=== PATIENT | male | born 1950 | race Caucasian/White ===

== ENCOUNTER 2017-02-03 09:08 | Inpatient (IN) | payer MEDICARE ==
[~2017-02-03] VITALS: Ht 188 cm; Wt 107.1 kg
[2017-02-03] VITALS (9 sets, daily range): BP systolic 135–149; BP diastolic 56–94; PULSE 71–112; RESP 14–20; TEMP 96.7–98.7; O2SAT 94–98
[~2017-02-03 09:08] MED LIST: ASPI1TAB69 PO; LORA-373 PO; QUET5TAB PO
[2017-02-03] MEDS ORDERED: DULO20 PO (09:25)
[2017-02-03] MEDS ORDERED: ASPI81CH37 CHEW (09:25)
[2017-02-03] MEDS ORDERED: VENTAER INH (09:25)
[2017-02-03] MEDS ORDERED: CEFT250S PO (09:25)
--- NOTE | 2017-02-03 09:55 | PD ---
HPI Chief Complaint: Edema Time Seen by Provider: 09:38 Travel History International Travel<30 days: No Contact w/Intl Traveler<30days: No Traveled to known affect area: No History of Present Illness HPI This patient complains of pain and swelling in his left leg. It is primarily in the left calf region. No injury. It's worse when he stands. No history of DVT. He's had low-grade temperatures between 99 and 100 for the last week. He has had cough. He completed some antibiotics for bronchitis. He denies feeling short of breath right now. No chest pain. He does have cough, nonproductive. PFSH Past Medical History Asthma: Yes High Cholesterol: Yes Diminished Hearing: No Hypertension: Yes Insomnia: Yes Respiratory: Yes (asthma) Influenza Vaccination: Yes PNEUMOCCOCAL Vaccine (Year): 2010 ?: Not Past Surgical History Tonsillectomy: Yes Social History Alcohol Use: Yes (OCC) Tobacco Use: No Substance Use: No Allergies-Medications (Allergen,Severity, Reaction): Coded Allergies: Penicillin (Verified Allergy, Unknown, UNKNOWN, 02/03/17) Reported Meds & Prescriptions Reported Meds & Active Scripts Active Reported Aspirin Low Dose (Aspirin) 81 Mg Chew 81 Mg CHEW DAILY Cymbalta DR (Duloxetine HCl) 20 Mg Capdr 20 Mg PO DAILY Ventolin Hfa 18 GM Inh (Albuterol Sulfate) 90 Mcg/Act Aer 2 Puff INH Q4-6H PRN Ceftin Liq (Cefuroxime Axetil) 250 Mg/5 Ml Susp 500 Mg PO BID Quetiapine (Quetiapine Fumarate) 50 Mg Tab 25 Mg PO HS Review of Systems General / Constitutional: Positive: Fever Eyes: No: Visual changes HENT: No: Headaches Cardiovascular: No: Chest Pain or Discomfort Respiratory: Positive: Cough, Shortness of Breath Gastrointestinal: No: Abdominal Pain Genitourinary: No: Dysuria Musculoskeletal: Positive: Myalgias, Pain Skin: No Rash Neurologic: No: Weakness Psychiatric: No: Depression Endocrine: No: Polydipsia Hematologic/Lymphatic: No: Easy Bruising Physical Exam Narrative GENERAL: Well-nourished, well-developed patient in no apparent distress. SKIN: Focused skin assessment reveals no rash and nodules. Skin is Warm and dry. HEAD: Atraumatic. Normocephalic. EYES: Pupils equal and round. No scleral icterus. No injection or drainage. ENT: No nasal bleeding or discharge. Mucous membranes pink and moist. NECK: Trachea midline. No JVD. CARDIOVASCULAR: Regular rate and rhythm. No murmur appreciated. RESPIRATORY: No accessory muscle use. Clear to auscultation. Breath sounds equal bilaterally. GASTROINTESTINAL: Abdomen soft, non-tender, nondistended. Hepatic and splenic margins not palpable. MUSCULOSKELETAL: No obvious deformities. No clubbing. No cyanosis. No edema. No erythema. No warmth. Legs look symmetric in appearance NEUROLOGICAL: Awake and alert. No obvious cranial nerve deficits. Motor grossly within normal limits. Normal speech. PSYCHIATRIC: Appropriate mood and affect; insight and judgment normal. Data Data Last Documented VS Vital Signs Date Time Temp Pulse Resp B/P Pulse Ox O2 Delivery O2 Flow Rate FiO2 02/03/17 12:01 90 20 135/82 95 Room Air 02/03/17 09:10 98.7 Orders Iv Access Insert/Monitor (02/03/17 09:52) Complete Blood Count With Diff (02/03/17 09:52) Basic Metabolic Panel (Bmp) (02/03/17 09:52) Prothrombin Time / Inr (Pt) (02/03/17 09:52) Act Partial Throm Time (Ptt) (02/03/17 09:52) Chest, Single Ap (02/03/17 ) Us Leg Venous Doppler (02/03/17 ) Ct Pulmonary Angiogram (02/03/17 ) Heparin Infusion NEHAL.Q1H (02/03/17 12:33) Heparin Inj (Heparin Inj) (02/03/17 12:45) Heparin Inj (Heparin Inj) (02/03/17 18:45) Heparin Inj (Heparin Inj) (02/03/17 18:45) Heparin-D5w Inj (Heparin-D5w Inj) (02/03/17 12:45) Occult Blood (Hemoccult) Stool (02/03/17 12:33) Admit Order (Ed Use Only) (02/03/17 12:35) Labs Laboratory Tests Test 02/03/17 09:45 White Blood Count 16.5 TH/MM3 Red Blood Count 5.20 MIL/MM3 Hemoglobin 15.7 GM/DL Hematocrit 47.1 % Mean Corpuscular Volume 90.5 FL Mean Corpuscular Hemoglobin 30.3 PG Mean Corpuscular Hemoglobin 33.4 % Concent Red Cell Distribution Width 12.7 % Platelet Count 160 TH/MM3 Mean Platelet Volume 8.5 FL Neutrophils (%) (Auto) 75.2 % Lymphocytes (%) (Auto) 13.2 % Monocytes (%) (Auto) 9.8 % Eosinophils (%) (Auto) 1.4 % Basophils (%) (Auto) 0.4 % Neutrophils # (Auto) 12.4 TH/MM3 Lymphocytes # (Auto) 2.2 TH/MM3 Monocytes # (Auto) 1.6 TH/MM3 Eosinophils # (Auto) 0.2 TH/MM3 Basophils # (Auto) 0.1 TH/MM3 CBC Comment DIFF FINAL Differential Comment Prothrombin Time 11.0 SEC Prothromb Time International 1.0 RATIO Ratio Activated Partial 25.3 SEC Thromboplast Time Sodium Level 139 MEQ/L Potassium Level 3.9 MEQ/L Chloride Level 103 MEQ/L Carbon Dioxide Level 26.1 MEQ/L Anion Gap 10 MEQ/L Blood Urea Nitrogen 19 MG/DL Creatinine 0.92 MG/DL Estimat Glomerular Filtration 82 ML/MIN Rate Random Glucose 179 MG/DL Calcium Level 8.9 MG/DL [facility] Medical Decision Making Medical Screen Exam Complete: Yes Emergency Medical Condition: Yes Medical Record Reviewed: Yes Differential Diagnosis DVT, muscle tear, pneumonia, bronchitis Narrative Course I have reviewed the patient's electronic medical record. IV placed CBC shows leukocytosis Metabolic profile is normal Coagulation studies are normal I reviewed his chest x-ray is normal I reviewed his left leg ultrasound shows extensive left leg DVT Given his dyspnea on exertion and rest for symptoms I did a CT pulmonary injury in which shows extensive bilateral PE Patient was started on heparin drip He has no bleeding or recent surgery or obvious contraindication Case reviewed with [facility] will admit Critical Care Narrative Aggregate critical care time was 34 minutes. Time to perform other separately billable procedures was not included in the critical care time. My time did not include minutes spent treating any other patients simultaneously or on activities that did not directly contribute to the patient's treatment. The services I provided to this patient were to treat and/or prevent clinically significant deterioration that could result in: Cardiopulmonary arrest, hypoxemic brain injury, respiratory failure I provided critical care services requiring my management, as noted below: Chart data review, documentation time, medication orders and management, vital sign assessments/reviewing monitor data, ordering and reviewing lab tests, ordering and interpreting/reviewing x-rays and diagnostic studies, care of the patient and discussion of the patient with the admitting physicians. Patient received critical care time based on extensive bilateral pulmonary embolus and extensive left leg DVT requiring heparinization and hospitalization Diagnosis Primary Impression: Pulmonary embolus Qualified Code: I26.99 - Other acute pulmonary embolism without acute cor pulmonale Additional Impression: DVT (deep venous thrombosis) Qualified Code: I82.4Z2 - Acute deep vein thrombosis (DVT) of distal vein of left lower extremity Cabrera Alberts MD Feb 03, 2017 09:55
[2017-02-03 09:59] LABS: AUTOMATED NEUTROPHIL # 12.4 TH/MM3 (1.8-7.7); BASOPHIL # 0.1 TH/MM3 (0-0.2); BASOPHIL % 0.4 % (0.0-2.0); EOSINOPHIL # 0.2 TH/MM3 (0-0.4); EOSINOPHIL % 1.4 % (0.0-4.0); HEMATOCRIT 47.1 % (39.0-51.0); LYMPH % 13.2 % (9.0-44.0); LYMPHOCYTE # 2.2 TH/MM3 (1.0-4.8); MEAN CELL VOLUME 90.5 FL (80.0-100.0); MEAN CORPUSCULAR HEMOGLOBIN 30.3 PG (27.0-34.0); MEAN CORPUSCULAR HGB CONC 33.4 % (32.0-36.0); MONO % 9.8 % (0.0-8.0); NEUT % 75.2 % (16.0-70.0); PLATELET COUNT 160 TH/MM3 (150-450); RED CELL DISTRIBUTION WIDTH 12.7 % (11.6-17.2); WHITE BLOOD COUNT 16.5 TH/MM3 (4.0-11.0)
[2017-02-03 10:04] LABS: HEMO FLAGS DIFF FINAL
[2017-02-03 10:07] LABS: POTASSIUM 3.9 MEQ/L (3.5-5.1)
[2017-02-03 10:10] LABS: BICARBONATE 26.1 MEQ/L (21.0-32.0)
[2017-02-03 10:11] LABS: APTT (PATIENT) 25.3 SEC (24.3-30.1)
--- NOTE | 2017-02-03 10:19 | RADRPT ---
EXAM DATE/TIME: 02/03/2017 10:12 [facility] COMPARISON: No previous studies available for comparison. INDICATIONS : Short of breath MEDICAL HISTORY : None. SURGICAL HISTORY : None. ENCOUNTER: Initial ACUITY: 2 weeks PAIN SCORE: 0/10 LOCATION: Bilateral chest FINDINGS: A single view of the chest demonstrates the lungs to be symmetrically aerated without evidence of mas s, infiltrate or effusion. The cardiomediastinal contours are unremarkable. Osseous structures are intact. CONCLUSION: No acute disease. Antwan Pompa MD on February 03, 2017 at 10:17 Board Certified Radiologist. This report was verified electronically.
--- NOTE | 2017-02-03 10:48 | RADRPT ---
EXAM DATE/TIME: 02/03/2017 10:31 [facility] COMPARISON: No previous studies available for comparison. INDICATIONS : Left leg pain. MEDICAL HISTORY : Hypercholesterolemia. Hypertension. Asthma. Colon polyps. Depression. SURGICAL HISTORY : Tonsillectomy. Cataract extraction. ENCOUNTER: Initial ACUITY: 4 - 6 days PAIN SCORE: 6/10 LOCATION: Left leg. TECHNIQUE: Venous ultrasound of the leg was performed from the inguinal ligament to the proximal calf. Real-nancy e, color Doppler and spectral tracing, compression and augmentation techniques were used. FINDINGS: There is occlusive thrombus in the left common femoral, femoral, popliteal, iliac, peroneal and poste rior tibial veins. Incomplete compressibility and augmentation response. CONCLUSION: Extensive left lower extremity DVT. Antwan Pompa MD on February 03, 2017 at 10:45 Board Certified Radiologist. This report was verified electronically.
[2017-02-03] MEDS ORDERED: IOHEXOL 350 MG/ML 10 ML VIAL (for RAD DIAG) IV ONE ×2 (11:30→11:50)
--- NOTE | 2017-02-03 11:56 | RADRPT ---
EXAM DATE/TIME: 02/03/2017 11:31 [facility] COMPARISON: US LEG LEFT VENOUS DOPPLER, February 03, 2017, 10:31. INDICATIONS : Left leg pain with positive ultrasound. IV CONTRAST: 100 cc Omnipaque 350 (iohexol) IV RADIATION DOSE: 19.06 CTDIvol (mGy) MEDICAL HISTORY : Hypertension. Bronchititis, asthma SURGICAL HISTORY : None. ENCOUNTER: Initial ACUITY: 4 - 6 days PAIN SCALE: 10/10 LOCATION: Left leg TECHNIQUE: Volumetric scanning of the chest was performed using a pulmonary embolism protocol MIP images were re constructed. Using automated exposure control and adjustment of the mA and/or kV according to patien t size, radiation dose was kept as low as reasonably achievable to obtain optimal diagnostic quality images. DICOM format image data is available electronically for review and comparison. FINDINGS: PULMONARY ARTERIES: There are bilateral filling defects in the arterial tree for this in the lower lobes consistent with bilateral extensive pulmonary emboli. There is some thrombus in the right and left main pulmonary art eries distally. LUNGS: There is no consolidation or pneumothorax . No concerning pulmonary nodule is visualized. PLEURAE: There is no pleural thickening or pleural effusion. MEDIASTINUM: There is good visualization of the great vessels of the middle mediastinum. No evidence of mediastin al or hilar adenopathy/mass. MUSCULOSKELETAL: Within normal limits for patient age. MISCELLANEOUS: The visualized upper abdominal organs demonstrate no acute abnormality. CONCLUSION: 1. Extensive bilateral pulmonary emboli. Antwan Pompa MD on February 03, 2017 at 11:53 Board Certified Radiologist. This report was verified electronically.
[2017-02-03] MEDS ORDERED: HEPARIN-D5W INJ 250 ML IV SCH ×2 (12:45→15:30)
[2017-02-03] MEDS ORDERED: HEPARIN SODIUM - IV 10,000 UNITS/10 ML VIAL IV ONE (12:45)
[2017-02-03] MEDS ORDERED: SODIUM CHLORIDE 0.9% FLUSH 10 ML FLUSH IV FLUSH PRN (15:00)
[2017-02-03 16:49] LABS: HEMATOCRIT 44.8 % (39.0-51.0); MEAN CELL VOLUME 90.8 FL (80.0-100.0); MEAN CORPUSCULAR HEMOGLOBIN 30.6 PG (27.0-34.0); MEAN CORPUSCULAR HGB CONC 33.7 % (32.0-36.0); PLATELET COUNT 151 TH/MM3 (150-450); RED BLOOD COUNT 4.94 MIL/MM3 (4.50-5.90); RED CELL DISTRIBUTION WIDTH 12.6 % (11.6-17.2); REVIEW FLAG FINAL; WHITE BLOOD COUNT 18.6 TH/MM3 (4.0-11.0)
[2017-02-03 17:04] LABS: PROTHROMBIN TIME - PATIENT 11.6 SEC (9.8-11.6)
[2017-02-03 17:06] LABS: APTT (PATIENT) 94.2 SEC (24.3-30.1)
[2017-02-03] MEDS ORDERED: ACETAMINOPHEN 325 MG TAB PO PRN (18:45)
[2017-02-03] MEDS ORDERED: ONDANSETRON HCL 4 MG/2 ML VIAL IV PRN (18:45)
[2017-02-03] MEDS ORDERED: DOCUSATE SODIUM 50 MG/SENNA 8.6 MG TAB PO PRN (18:45)
[2017-02-03] MEDS ORDERED: HEPARIN SODIUM - IV 10,000 UNITS/10 ML VIAL IV PRN ×2 (18:45)
[2017-02-03] MEDS: WARFARIN SOD 5 MG TAB PO SCH (19:25)
--- NOTE | 2017-02-03 19:58 | MH ---
cc: KISHA [place] DATE OF ADMISSION: 02/03/2017 ADMITTING DIAGNOSIS: 1. Left lower extremity DVT. 2. Bilateral PE. HISTORY OF PRESENT ILLNESS: The patient presented to the emergency room today complaining of pain and swelling in his left lower extremity. He states that he has been sick for the last approximately three weeks. He has had what is being treated as a bronchitis but has had him relatively inactive at home with persistent cough and wheezing. He states that on Sunday he noticed some discomfort in the back of his leg which actually progressed which prompted his coming to the emergency room. He states the pain is worse when he is standing on his leg and better when it is elevated. Over the last three weeks, he has been on courses of antibiotics for a bronchitis. This started as a sore throat and congestion and cough. He has had two courses of antibiotics at this point, a Z-Lars and he was started on Ceftin on Sunday when an x-ray was done that was read as negative. He also did have a course of prednisone which he does not feel helped his wheezing much. He has had some Ventolin. He said this just made him very nervous and made his heart rate go up. Again, he did not feel that it helped with his wheezing or his breathing. His wheezing is worse when he lies down. As stated, the pain started on Sunday in his left lower extremity and the swelling was new. He did feel subjectively short of breath also during this period of time. On further questioning, he does state that he did have some chest discomfort along both rib cages on Sunday which he did attribute to his coughing spells. He states that at this point the coughing has improved somewhat even though it persists. PAST MEDICAL HISTORY: His past medical history is significant for: 1. Asthma as a child and it has not been much of a major issue as an adult. 2. He does have a history of hyperlipidemia but has been off his medications and apparently has been diet-controlled. 3. He also has a history of hypertension, again off medications and has been controlled. 4. He also has a history of anxiety and depression. 5. He has had a synovial cyst that caused radiculopathy and pain on his right leg and this required procedures by interventional radiology. 6. He also has been undergoing treatment for neck pain. 7. Issues with vertigo. PAST SURGICAL HISTORY: 1. Tonsillectomy. ALLERGIES: PENICILLIN. MEDICATIONS: Current medications at the time of admission include: 1. Ceftin 500 milligrams twice a day. 2. Duloxetine DR 20 milligrams on Sunday, Sunday and Sunday. 3. Seroquel 25 milligrams at bedtime. 4. He has been taking occasional Tylenol. 5. A Ventolin inhaler. 6. A baby aspirin. SOCIAL HISTORY: He is . He lived originally in [place] and moved to [place] approximately 17 years ago. He is currently retired. 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 He is active and recently had just returned to doing yoga. HABITS: He only consumes alcohol occasionally. He smoked in the past. He has not smoked in over 10 years and he states that at that time he smoked very little. FAMILY HISTORY: His family history is noncontributory. REVIEW OF SYSTEMS: He denies any change in his weight. He does say that he has noticed low-grade temperature in the evening recently with some sweats. He did have some chills also when he was initially on the Duloxetine but apparently he has not had the chills as much. He has noticed the sweats at approximately between 6:00 and 07:00 p.m. He denies any actual chest pain or palpitations. As stated, he did have some shortness of breath and wheezing when lying flat. He denies any abdominal pain or heartburn. No constipation or change in his bowel movements. He does have a history of polyps and diverticulosis and he was due to undergo a colonoscopy on a routine basis yesterday. He denies any problems with voiding or with emptying his bladder. PHYSICAL EXAMINATION: VITAL SIGNS: Temperature is 96.9, pulse is 82, respirations 20, blood pressure is 141/86, pulse oximetry is 97% on room air. GENERAL: He is semi-sitting in the hospital bed. He is speaking in full sentences. He does not appear to be in any acute distress. Slightly anxious. HEAD, EYES, EARS, NOSE, THROAT: Normocephalic and atraumatic. Extraocular muscles intact. He has a clear moist oral mucosa with clear oropharynx. NECK: His neck is supple. LUNGS: His lungs sound clear. I really do not hear any wheezing. He has some fine crackles at the bases. HEART: His heart is regular. He is not tachycardic. I hear no murmurs. ABDOMEN: His abdomen is globulose. He has good bowel sounds in all four quadrants. No rebound or guarding. No mid epigastric tenderness. EXTREMITIES: No cyanosis, clubbing or edema. He does have minimal Homans sign on the left. Of note, he has been lying with his legs elevated for several hours by the time I see him. LABORATORY STUDIES: When he presented to the emergency room, he had a white count of 16.5, hemoglobin of 15.7, hematocrit of 47.1, platelet count of 168,000, neutrophils of 75.2, monocytes 9.8%. PT was 11. INR was 1. PTT was 25.3. Sodium was 139, potassium 3.9, BUN 19, creatinine 0.92, random glucose is 179 with a calcium of 8.9. IMAGING STUDIES: Chest x-ray that was done showed no acute disease. Venous Doppler that was done showed occlusive thrombus of the left common femoral, femoral, popliteal, iliac, peroneal and posterior tibial veins. There was an incomplete compressibility on augmentation response, extensive left lower extremity DVT. A CTA that was done showed bilateral filling defects in the arterial tree in the lower lobes consistent with bilateral extensive pulmonary emboli. There was some thrombus in the right and left main pulmonary arteries distally. No consolidation or pneumothorax. No pulmonary nodules were visualized. No pleural effusions. The upper abdominal organs visualized showed no acute abnormality. ASSESSMENT AND PLAN: This is a 66-year-old gentleman presenting to the emergency room with left lower extremity discomfort with imaging studies consistent with extensive left lower extremity DVT and bilateral pulmonary embolism. At this point, he is actually quite hemodynamically stable throughout the course of the day. He is feeling no discomfort with his leg elevated. Will continue anticoagulation. Will go ahead and do hypercoagulable workup even though it appears that more than likely it is possible that his DVT was caused by relative or decreased mobility while he has been sick. For his anxiety and depression, we will continue his home medications. Hopefully he ill continue to do well over the next day or two and will be able to discharge on perhaps Lovenox and coumadin. Further recommendations as the case develops. MD ROSE Briceno/JEANNETTE /7:07 PM /7:39 PM
[2017-02-03] MEDS: ENOXAPARIN SODIUM 100 MG/ML SYRINGE SQ SCH (20:39)
[2017-02-03] MEDS: QUEtiapine FUMARATE 25 MG TAB PO SCH (20:40)
[2017-02-03] MEDS: SODIUM CHLORIDE 0.9% FLUSH 10 ML FLUSH IV FLUSH SCH (20:41)
[2017-02-04] VITALS (8 sets, daily range): BP systolic 120–133; BP diastolic 70–84; PULSE 59–88; RESP 12–19; TEMP 97.6–98.7; O2SAT 93–96
[2017-02-04 07:42] LABS: AUTOMATED NEUTROPHIL # 9.6 TH/MM3 (1.8-7.7); BASOPHIL # 0.1 TH/MM3 (0-0.2); BASOPHIL % 0.5 % (0.0-2.0); EOSINOPHIL # 0.3 TH/MM3 (0-0.4); HEMATOCRIT 42.9 % (39.0-51.0); LYMPH % 18.4 % (9.0-44.0); LYMPHOCYTE # 2.6 TH/MM3 (1.0-4.8); MEAN CELL VOLUME 91.5 FL (80.0-100.0); MEAN CORPUSCULAR HGB CONC 33.8 % (32.0-36.0); MONO % 10.4 % (0.0-8.0); NEUT % 68.7 % (16.0-70.0); PLATELET COUNT 152 TH/MM3 (150-450); RED BLOOD COUNT 4.69 MIL/MM3 (4.50-5.90); RED CELL DISTRIBUTION WIDTH 12.7 % (11.6-17.2); WHITE BLOOD COUNT 14.1 TH/MM3 (4.0-11.0)
[2017-02-04 07:44] LABS: HEMO FLAGS DIFF FINAL
[2017-02-04 07:53] LABS: CHLORIDE 103 MEQ/L (98-107); POTASSIUM 4.2 MEQ/L (3.5-5.1); SODIUM (NA) 139 MEQ/L (136-145)
[2017-02-04 08:01] LABS: ANION GAP 10 MEQ/L (5-15); BICARBONATE 26.4 MEQ/L (21.0-32.0)
[2017-02-04 08:02] LABS: BLOOD UREA NITROGEN 17 MG/DL (7-18)
[2017-02-04 08:04] LABS: ALT (GPT) 37 U/L (12-78); AST (GOT) 36 U/L (15-37)
[2017-02-04 08:05] LABS: GLOMERULAR FILTRATION RATE 89 ML/MIN (>89)
[2017-02-04 08:07] LABS: ALKALINE PHOSPHATASE 71 U/L (45-117)
[2017-02-04] MEDS: ASPIRIN 81 MG CHEW TAB CHEW SCH (08:17)
[2017-02-04] MEDS: ENOXAPARIN SODIUM 100 MG/ML SYRINGE SQ SCH ×2 (08:18→20:55)
[2017-02-04] MEDS: SODIUM CHLORIDE 0.9% FLUSH 10 ML FLUSH IV FLUSH SCH ×2 (08:19→20:55)
--- NOTE | 2017-02-04 14:43 | HHI.PR ---
Subjective Remarks Less calf pain today. Was up to the bathroom only a little sob. Not coughing as much when laying flat.No sweats Objective Vitals Vital Signs Date Time Temp Pulse Resp B/P Pulse Ox O2 Delivery O2 Flow Rate FiO2 02/04/17 12:00 98.2 79 18 133/82 94 02/04/17 08:00 97.6 74 19 133/83 94 02/04/17 07:55 94 Room Air 02/04/17 07:54 94 02/04/17 04:24 97.7 59 16 127/75 94 02/04/17 01:03 98.7 69 12 126/77 93 02/03/17 21:16 94 21 02/03/17 21:16 94 21 02/03/17 20:38 96.7 82 14 147/56 94 02/03/17 20:00 79 02/03/17 17:05 97.9 71 20 138/94 95 02/03/17 16:12 98 02/03/17 02/03/17 02/04/17 15:00 23:00 07:00 # Voids 1 2 Result Diagram: 02/04/17 0638 02/04/17 0638 Other Results Last Impressions Lower Extremity Ultrasound 02/03/17 0000 Signed Impressions: Service Date/Time: Friday, February 03, 2017 10:31 - CONCLUSION: Extensive left lower extremity DVT. Antwan Pompa MD Chest X-Ray 02/03/17 0000 Signed Impressions: Service Date/Time: Friday, February 03, 2017 10:12 - CONCLUSION: No acute disease. Antwan Pompa MD CT Angiography 02/03/17 0000 Signed Impressions: Service Date/Time: Friday, February 03, 2017 11:31 - CONCLUSION: 1. Extensive bilateral pulmonary emboli. Antwan Pompa MD Objective Remarks Lying in bed. In no acute distress. No oxygen, speaking in full sentences. Lungs clear, no wheezing, faint crackle at bases heart rrr not tachycardic abdomen globose + BS nontender ext no c/c/e minimal calf tenderness Urinary Catheter: No Vascular Central Line Catheter: No A/P Problem List: (1) Pulmonary embolus Status: Acute Plan: bilateral PE on anticoagulation lovenox/coumadin, hemodynamically stable , Pulse Ox a little lower today but improves with IS, Will have him try to ambulate more. Hemodynamically stable. (2) DVT (deep venous thrombosis) Status: Acute Plan: extensive on the left, not a significant amount of pain or swelling but has had leg elevated, again will ambulate, cont anticoagulation (3) Anxiety and depression Status: Acute Plan: on seroquel and duloxetine will continue home regimen, seems to be handling illness and hospitilization well Assessment and Plan ambulate, coumadin and lovenox teaching if continues stable discharge [facility] Problem Qualifiers (1) Pulmonary embolus: Qualified Code: I26.99 - Other acute pulmonary embolism without acute cor pulmonale (2) DVT (deep venous thrombosis): Qualified Code: I82.4Z2 - Acute deep vein thrombosis (DVT) of distal vein of left lower extremity Phuong Bryson MD Feb 04, 2017 14:43
[2017-02-04] MEDS: WARFARIN SOD 5 MG TAB PO SCH (15:16)
[2017-02-04] MEDS ORDERED: DULoxetine HCl DR 20 MG CAP PO SCH (17:00)
[2017-02-04] MEDS: QUEtiapine FUMARATE 25 MG TAB PO SCH (20:55)
[2017-02-05] VITALS: BP 123/78; PULSE 78; RESP 18; TEMP 97.6; O2SAT 94
[2017-02-05 06:40] LABS: AUTOMATED NEUTROPHIL # 8.4 TH/MM3 (1.8-7.7); BASOPHIL # 0.1 TH/MM3 (0-0.2); BASOPHIL % 0.5 % (0.0-2.0); EOSINOPHIL # 0.3 TH/MM3 (0-0.4); EOSINOPHIL % 2.5 % (0.0-4.0); HEMATOCRIT 43.2 % (39.0-51.0); HEMO FLAGS DIFF FINAL; LYMPH % 21.1 % (9.0-44.0); LYMPHOCYTE # 2.7 TH/MM3 (1.0-4.8); MEAN CELL VOLUME 91.3 FL (80.0-100.0); MEAN CORPUSCULAR HEMOGLOBIN 30.6 PG (27.0-34.0); MEAN CORPUSCULAR HGB CONC 33.6 % (32.0-36.0); MONO % 8.7 % (0.0-8.0); NEUT % 67.2 % (16.0-70.0); PLATELET COUNT 168 TH/MM3 (150-450); RED BLOOD COUNT 4.73 MIL/MM3 (4.50-5.90); RED CELL DISTRIBUTION WIDTH 12.3 % (11.6-17.2); WHITE BLOOD COUNT 12.6 TH/MM3 (4.0-11.0)
[2017-02-05 06:53] LABS: INTERNATIONAL NORMALIZED RATIO 1.1 RATIO; PROTHROMBIN TIME - PATIENT 12.1 SEC (9.8-11.6)
[2017-02-05 08:00] VITALS: BP 121/91; PULSE 76; RESP 20; TEMP 98; O2SAT 94
[2017-02-05 08:15] VITALS: O2SAT 95
[2017-02-05] MEDS ORDERED: DULoxetine HCl DR 20 MG CAP PO SCH (09:00)
[2017-02-05] MEDS: SODIUM CHLORIDE 0.9% FLUSH 10 ML FLUSH IV FLUSH SCH (09:55)
[2017-02-05] MEDS: ENOXAPARIN SODIUM 100 MG/ML SYRINGE SQ SCH (09:55)
[2017-02-05] MEDS: ASPIRIN 81 MG CHEW TAB CHEW SCH (09:55)
--- NOTE | 2017-02-05 11:59 | HHI.PR ---
Subjective Remarks Ambulating shanks, tolerating well, sats mainting, wearing TEDS thigh high, feels comfortable, no increased pain or swelling Objective Vitals Vital Signs Date Time Temp Pulse Resp B/P Pulse Ox O2 Delivery O2 Flow Rate FiO2 02/05/17 08:15 95 21 02/05/17 08:15 95 Room Air 21 02/05/17 08:00 98.0 76 20 121/91 94 02/05/17 00:00 97.6 78 18 123/78 94 02/04/17 20:00 98.0 63 18 120/70 96 02/04/17 20:00 95 Room Air 21 02/04/17 20:00 95 21 02/04/17 16:00 98.2 88 19 127/84 96 02/04/17 12:00 98.2 79 18 133/82 94 02/04/17 02/04/17 02/05/17 15:00 23:00 07:00 Intake Total 480 ml 480 ml Output Total 400 ml Balance 480 ml 80 ml Intake Oral 480 ml 480 ml IV Total 0 ml Output Urine Total 400 ml # Voids 3 2 # Bowel Movements 1 0 Result Diagram: 02/05/17 0610 02/04/17 0638 Imaging Last Impressions Lower Extremity Ultrasound 02/03/17 0000 Signed Impressions: Service Date/Time: Friday, February 03, 2017 10:31 - CONCLUSION: Extensive left lower extremity DVT. Antwan Pompa MD Chest X-Ray 02/03/17 0000 Signed Impressions: Service Date/Time: Friday, February 03, 2017 10:12 - CONCLUSION: No acute disease. Antwan Pompa MD CT Angiography 02/03/17 0000 Signed Impressions: Service Date/Time: Friday, February 03, 2017 11:31 - CONCLUSION: 1. Extensive bilateral pulmonary emboli. Antwan Pompa MD Objective Remarks Sitting in chair occ crackles at bases, no wheezing rrr not tachycardic wearing thigh highs, minimal edema Urinary Catheter: No Vascular Central Line Catheter: No A/P Problem List: (1) Pulmonary embolus Status: Acute Plan: bilateral PE on anticoagulation lovenox/coumadin, hemodynamically stable , No desaturation on ambulation. (2) DVT (deep venous thrombosis) Status: Acute Plan: extensive on the left, not a significant amount of pain or swelling Doing well with thigh highs (3) Anxiety and depression Status: Chronic Plan: on seroquel and duloxetine changed duloxetine to every other day seems to be handling illness and hospitilization well Assessment and Plan clinically doing well continue on lovenox until therapeutic on coumadin Discharge Planning discharge today with [facility] Problem Qualifiers (1) Pulmonary embolus: Qualified Code: I26.99 - Other acute pulmonary embolism without acute cor pulmonale (2) DVT (deep venous thrombosis): Qualified Code: I82.4Z2 - Acute deep vein thrombosis (DVT) of distal vein of left lower extremity Phuong Bryson MD Feb 05, 2017 11:59
--- NOTE | 2017-02-05 12:05 | HHI.FF ---
Face to Face Verification Diagnosis: (1) Pulmonary embolus (2) DVT (deep venous thrombosis) (3) Anxiety and depression Home Health Nursing Order: Medical education Signs/symptoms of disease process Medication education-adverse effect Nursing assessment with vital signs I have seen patient Ammon Cavazos on 02/05/17. My clinical findings support the need for the requested home health care services because: Injectable med education/admin I certify that my clinical findings support that this patient is homebound because: Unsafe to leave home unassisted Need for psychosocial assistance Patient with extensive DVT/bilateral PE. Needs cardiopulmonary assessment and medication teaching with monitoring, with INR called into his primary, Dr Small. Phuong Bryson MD Feb 05, 2017 12:05
[2017-02-05] MEDS ORDERED: DULO20 PO (13:15)
[2017-02-05] MEDS ORDERED: COUM5TAB PO (13:15)
[2017-02-05] MEDS ORDERED: ENOX100P SQ (13:15)
[2017-02-07 19:52] LABS: THROMBIN TIME FOR LA ND sec (13-19)
== END 2017-02-05 13:00 | disposition home health service (06) | DRG 176 ==
LOC: PHED 09:08 → PHEDA 12:36 → PH3B 13:28
PROVIDERS: ADMIT Legal Medicine; ATTEND Legal Medicine
DX: I26.99 Other pulmonary embolism without acute cor pulmonale (principal); I82.412 Acute embolism and thrombosis of left femoral vein; I82.432 Acute embolism and thrombosis of left popliteal vein; I82.422 Acute embolism and thrombosis of left iliac vein; I82.442 Acute embolism and thrombosis of left tibial vein; F32.9 Major depressive disorder, single episode, unspecified; E78.5 Hyperlipidemia, unspecified; F41.9 Anxiety disorder, unspecified; Z87.891 Personal history of nicotine dependence; Z88.0 Allergy status to penicillin
CPT/HCPCS: 71010; 71275; 80048; 80053; 81240; 81241; 81291; 82272; 83090; 85025; 85027; 85240; 85300; 85303; 85306; 85307; 85598; 85610; 85613; 85730; 86146; 86147; 86148; 93971; 94150; 94620; 94762; J1644; J1650; Q9967